=== PATIENT | male | born 1970 | race Caucasian/White ===

== ENCOUNTER 2019-06-05 19:26 | Inpatient (IN) ==
[2019-06-05] MEDS: cefTRIAXone 1,000 MG in Water for inj. (sterile) 10 ML IVP SCH (19:00)
[2019-06-05] MEDS: 0.9 % Sodium Chloride 1,000 ML IVC SCH (19:00)
[~2019-06-05 19:26] MED LIST: 0.9 % Sodium Chloride 1,000 ML ONE; 0.9 % Sodium Chloride Mini Bag 100 ML ONE; CefTRIAXone 1,000 MG VIAL ONE
[2019-06-05] MEDS: Insulin LISPRO 300 UNITS/3 ML VIAL SQ SCH (22:27)
[2019-06-05] MEDS: *HR* Heparin 5,000 UNIT/ML VIAL SQ SCH (22:30)
[2019-06-05 23:00] LABS: BUN/Creatinine Ratio 8 (6-26); Blood Urea Nitrogen 77 mg/dL (6-20); Calcium 8.7 mg/dL (8.6-10.3); Carbon Dioxide 16 mEq/L (23-29); Chloride 101 mEq/L (98-107); Glucose 145 mg/dL (70-105); Osmolality,Calculated 304 (280-300); Potassium 5.8 mEq/L (3.5-5.1); Sodium 134 mEq/L (136-145); eGFR For African Americans 7 (> 60); eGFR For Non-African Americans 6 (> 60)
[2019-06-06 00:52] LABS: Bilirubin,Urine Negative (Negative); Blood,Urine Large (Negative); Clarity,Urine Turbid (Clear); Color,Urine Yellow (Yellow); Glucose,Urine (UA) Normal (Normal); Ketones,Urine Negative (Negative); Leukocyte Esterase,Urine Large (Negative); Nitrite,Urine Negative (Negative); Protein,Urine 100 mg/dL (Neg-Trace); Specific Gravity,Urine 1.011 (1.010-1.025); Urobilinogen,Urine Normal (Normal)
[2019-06-06 00:54] LABS: Hyaline Casts,Urine None Seen per lpf (None-Few); Squamous Epithelial Cell,Urine Many per lpf (None-Few); WBC,Urine 50-100 per hpf (0-3)
[2019-06-06 01:02] LABS: Sodium, Urine 53.5 mEq/L
[2019-06-06 01:07] LABS: Bacteria,Urine Many per hpf (None-Few); RBC,Urine 50-100 per hpf (0-3)
[2019-06-06 02:58] LABS: Creatine Kinase 252 Units/L (30-223); Troponin I < 0.03 ng/mL (< 0.04)
[2019-06-06 06:42] LABS: Basophils # 0.1 K/mcL (0.0-0.2); Basophils % 0.5 %; Eosinophils # 0.2 K/mcL (0.0-0.6); Hemoglobin 12.5 g/dL (12.9-16.9); Immature Granulocytes % 0.9 % (0-4); Lymphocytes # 1.1 K/mcL (0.6-4.6); Lymphocytes % 9.5 %; Mean Corpuscular HGB Conc 34.7 g/dL (31.6-35.5); Mean Corpuscular Hemoglobin 30.5 pg (28.0-33.3); Mean Corpuscular Volume 87.8 fL (83.0-100.0); Mean Platelet Volume 9.1 fL (9.4-12.4); Monocytes # 0.6 K/mcL (0.0-1.3); Monocytes % 5.8 %; Platelet Count 264 K/mcL (140-400); Red Cell Distribution Width 13.6 % (11.5-14.5); Segmented Neutrophils % 81.3 %; White Blood Count 11.1 K/mcL (4.3-11.1)
[2019-06-06] MEDS: 0.9 % Sodium Chloride 1,000 ML IVC SCH ×3 (06:57→20:03)
[2019-06-06 07:03] LABS: Albumin 3.7 g/dL (3.5-5.7); Albumin/Globulin Ratio 1.6 (1.1-2.2); Bilirubin,Total 0.4 mg/dL (0.3-1.0); Calcium 8.3 mg/dL (8.6-10.3); Globulin 2.3 g/dL (2.4-3.5); Magnesium 2.8 mg/dL (1.6-2.6); Phosphorous 8.8 mg/dL (2.7-4.5)
[2019-06-06] MEDS ORDERED: Regadenoson 0.4 MG/5 ML SYRINGE IVP ONE (07:19)
[2019-06-06] MEDS ORDERED: Perflutren Lipid Microsphere 1.3 ML in 0.9 % Sodium Chloride 8.7 ML IVP ONE (07:30)
[2019-06-06] MEDS: cefTRIAXone 1,000 MG in Water for inj. (sterile) 10 ML IVP SCH (08:38)
[2019-06-06] MEDS: amLODIPine 5 MG TABLET PO SCH (08:39)
[2019-06-06] MEDS: Aspirin 81 MG TAB.CHEW PO SCH (08:39)
[2019-06-06] MEDS: Insulin LISPRO 300 UNITS/3 ML VIAL SQ SCH ×4 (08:40→23:00)
[2019-06-06] MEDS: BuPROPion XL (24 HR) 150 MG TABLET PO SCH (08:40)
[2019-06-06] MEDS: *HR* Heparin 5,000 UNIT/ML VIAL SQ SCH ×2 (12:06→23:00)
[2019-06-06] MEDS ORDERED: Sodium Bicarbonate 50 MEQ/50 ML VIAL IVP ONE (13:08)
[2019-06-06] MEDS ORDERED: Acetaminophen 325 MG TABLET PO PRN (14:51)
[2019-06-06] MEDS ORDERED: traMADol 50 MG TABLET PO PRN (14:51)
[2019-06-06] MEDS: Sodium Bicarbonate 150 MEQ in D5% in Water 1,000 ML IVC SCH ×2 (17:51→19:41)
[2019-06-07] MEDS ORDERED: Isovue-300 50ML VIAL ONE (01:10)
[2019-06-07] MEDS: 0.9 % Sodium Chloride 1,000 ML IVC SCH ×2 (03:47→11:47)
[2019-06-07] MEDS ORDERED: Lidocaine HCL 4 ML Topical Solution (Laryng-O-Jet Kit Sterile Pak) TP ONE (05:31)
[2019-06-07] MEDS ORDERED: *HR* Succinylcholine 200 MG/10 ML VIAL IVP ONE (05:32)
[2019-06-07] MEDS ORDERED: Dexamethasone 4 MG/ML VIAL ONE (05:32)
[2019-06-07] MEDS ORDERED: Lidocaine -MPF 2% 2 ML VIAL ONE (05:32)
[2019-06-07] MEDS ORDERED: Ondansetron 4 MG/2 ML VIAL ONE (05:32)
[2019-06-07] MEDS ORDERED: *HR* Midazolam HCl 2 MG/2 ML VIAL ONE (05:33)
[2019-06-07] MEDS ORDERED: *HR* FentaNYL (PF) 100 MCG/2 ML VIAL ONE (05:33)
[2019-06-07] MEDS ORDERED: *HR* Propofol 200 MG/20 ML VIAL IVP ONE (05:34)
[2019-06-07] MEDS ORDERED: Acetaminophen IV 1,000 MG/100 ML INFUS..BTL ONE (05:49)
[2019-06-07] MEDS ORDERED: Famotidine 20 MG/2 ML VIAL ONE (05:50)
[2019-06-07] MEDS ORDERED: Lidocaine -MPF 4% 5 ML AMPUL ONE ×2 (06:11→06:47)
[2019-06-07] MEDS ORDERED: Dexmedetomidine HCl 400 MCG/100 ML MLS IVC ONE (06:16)
[2019-06-07] MEDS ORDERED: Lidocaine OINT 35.44 GM TUBE TP ONE (06:18)
[2019-06-07] MEDS ORDERED: *HR* PHENYLEPHRINE 1,000 MCG/10 ML SYRINGE IVP ONE (07:09)
[2019-06-07] MEDS ORDERED: traMADol 50 MG TABLET PO PRN (07:38)
[2019-06-07] MEDS ORDERED: Dextrose Gel 15 GM/37.5 ML TUBE PO PRN ×3 (07:38→10:04)
[2019-06-07] MEDS ORDERED: D5% in Water 1,000 ML IVC PRN ×2 (07:38→10:04)
[2019-06-07] MEDS ORDERED: *HR* Dextrose 50 % in Water (Syg) 50 ML SYRINGE IVP PRN ×2 (07:38→10:04)
[2019-06-07] MEDS ORDERED: Acetaminophen 325 MG TABLET PO PRN (07:38)
[2019-06-07] MEDS ORDERED: Insulin LISPRO 300 UNITS/3 ML VIAL SQ SCH (07:45)
[2019-06-07] MEDS ORDERED: cefTRIAXone 1,000 MG in 0.9 % Sodium Chloride Mini Bag 100 ML IVPB SCH (09:00)
[2019-06-07] MEDS ORDERED: AMLODIPINE BESYLATE PO SCH (10:04)
[2019-06-07] MEDS ORDERED: Sodium Bicarbonate 150 MEQ in D5% in Water 1,000 ML IVC SCH (10:04)
[2019-06-07] MEDS ORDERED: BuPROPion XL (24 HR) 150 MG TABLET PO SCH (10:04)
[2019-06-07] MEDS: tiZANidine 4 MG TABLET PO SCH ×3 (11:48→20:50)
[2019-06-07] MEDS: cefTRIAXone 1,000 MG in 0.9 % Sodium Chloride Mini Bag 100 ML IVPB SCH (11:49)
[2019-06-07] MEDS: Insulin LISPRO 300 UNITS/3 ML VIAL SQ SCH ×3 (11:50→20:49)
[2019-06-07] MEDS ORDERED: cefTRIAXone 1,000 MG in Water for inj. (sterile) 10 ML IVP SCH (12:00)
[2019-06-07 13:43] LABS: Protein/Creatinine Ratio,Urine 0.49 mg/mg (0.00-0.20); Sodium, Urine 59.5 mEq/L
[2019-06-07 13:44] LABS: Bilirubin,Urine Negative (Negative); Blood,Urine Large (Negative); Clarity,Urine Cloudy (Clear); Color,Urine Yellow (Yellow); Glucose,Urine (UA) Normal (Normal); Ketones,Urine Negative (Negative); Leukocyte Esterase,Urine Small (Negative); Nitrite,Urine Negative (Negative); Protein,Urine 30 mg/dL (Neg-Trace); Specific Gravity,Urine 1.012 (1.010-1.025); Urobilinogen,Urine Normal (Normal)
[2019-06-07 13:45] LABS: Bacteria,Urine None Seen per hpf (None-Few); Hyaline Casts,Urine None Seen per lpf (None-Few); RBC,Urine TNTC per hpf (0-3); Squamous Epithelial Cell,Urine Many per lpf (None-Few)
[2019-06-07 14:14] LABS: Basophils % 0.2 %; Eosinophils % 0.1 %; Hematocrit 37.7 % (37.5-50.1); Hemoglobin 13.3 g/dL (12.9-16.9); Immature Granulocytes % 0.7 % (0-4); Lymphocytes # 0.4 K/mcL (0.6-4.6); Lymphocytes % 3.2 %; Mean Corpuscular HGB Conc 35.3 g/dL (31.6-35.5); Mean Corpuscular Hemoglobin 30.4 pg (28.0-33.3); Mean Corpuscular Volume 86.3 fL (83.0-100.0); Mean Platelet Volume 8.9 fL (9.4-12.4); Monocytes # 0.2 K/mcL (0.0-1.3); Monocytes % 1.3 %; Neutrophils # 10.7 K/mcL (1.6-8.9); Platelet Count 311 K/mcL (140-400); Red Blood Count 4.37 M/mcL (4.19-5.50); Red Cell Distribution Width 13.7 % (11.5-14.5); Segmented Neutrophils % 94.5 %; White Blood Count 11.3 K/mcL (4.3-11.1)
[2019-06-07 14:39] LABS: Calcium 8.4 mg/dL (8.6-10.3); Magnesium 2.7 mg/dL (1.6-2.6); Phosphorous 6.8 mg/dL (2.7-4.5); Potassium 4.5 mEq/L (3.5-5.1)
[2019-06-07 14:40] LABS: Calcium 8.4 mg/dL (8.6-10.3); Potassium 4.6 mEq/L (3.5-5.1)
[2019-06-07 14:41] LABS: Albumin 3.9 g/dL (3.5-5.7); Calcium 8.3 mg/dL (8.6-10.3); Phosphorous 6.8 mg/dL (2.7-4.5); Potassium 4.5 mEq/L (3.5-5.1)
[2019-06-07 15:01] LABS: Complement C3 166 mg/dL (87-200)
[2019-06-07] MEDS: traMADol 50 MG TABLET PO PRN ×2 (15:45→21:47)
[2019-06-07] MEDS: Sodium Bicarbonate 150 MEQ in D5% in Water 1,000 ML IVC SCH ×2 (15:46→22:01)
[2019-06-07] MEDS: *HR* Heparin 5,000 UNIT/ML VIAL SQ SCH ×2 (19:50→20:50)
[2019-06-07] MEDS: BuPROPion XL (24 HR) 150 MG TABLET PO SCH (19:50)
[2019-06-07] MEDS: amLODIPine 5 MG TABLET PO SCH (19:51)
[2019-06-07] MEDS: Aspirin 81 MG TAB.CHEW PO SCH (19:51)
[2019-06-08 05:31] LABS: ABG Base Excess 3 mEq/L (-2 to 3); ABG HCO3 28 mEq/L (21-27); ABG Oxygen Saturation 95 % (95-98); ABG PCO2 42 mmHg (35-45); ABG PH 7.43 pH Units (7.32-7.45); ABG PO2 72 mmHg (85-104); ABG TCO2 30 mEq/L (20-26)
[2019-06-08] MEDS: traMADol 50 MG TABLET PO PRN ×2 (06:04→18:36)
[2019-06-08 07:00] LABS: Basophils # 0.1 K/mcL (0.0-0.2); Basophils % 0.6 %; Eosinophils # 0.1 K/mcL (0.0-0.6); Eosinophils % 1.1 %; Hematocrit 36.8 % (37.5-50.1); Hemoglobin 12.9 g/dL (12.9-16.9); Immature Granulocytes % 1.2 % (0-4); Lymphocytes # 1.5 K/mcL (0.6-4.6); Lymphocytes % 16.9 %; Mean Corpuscular HGB Conc 35.1 g/dL (31.6-35.5); Mean Corpuscular Hemoglobin 30.2 pg (28.0-33.3); Mean Corpuscular Volume 86.2 fL (83.0-100.0); Mean Platelet Volume 8.8 fL (9.4-12.4); Monocytes # 0.6 K/mcL (0.0-1.3); Monocytes % 6.3 %; Neutrophils # 6.6 K/mcL (1.6-8.9); Platelet Count 304 K/mcL (140-400); Red Blood Count 4.27 M/mcL (4.19-5.50); Red Cell Distribution Width 13.8 % (11.5-14.5); Segmented Neutrophils % 73.9 %; White Blood Count 8.9 K/mcL (4.3-11.1)
[2019-06-08 07:05] LABS: Calcium 8.4 mg/dL (8.6-10.3); Magnesium 2.4 mg/dL (1.6-2.6); Phosphorous 4.8 mg/dL (2.7-4.5); Potassium 3.6 mEq/L (3.5-5.1)
[2019-06-08] MEDS ORDERED: Ringers Solution, Lactated 1,000 ML IVC SCH (07:30)
[2019-06-08] MEDS: tiZANidine 4 MG TABLET PO SCH ×3 (09:44→21:15)
[2019-06-08] MEDS: BuPROPion XL (24 HR) 150 MG TABLET PO SCH (09:45)
[2019-06-08] MEDS: Aspirin 81 MG TAB.CHEW PO SCH (09:45)
[2019-06-08] MEDS: amLODIPine 5 MG TABLET PO SCH (09:45)
[2019-06-08] MEDS: Insulin LISPRO 300 UNITS/3 ML VIAL SQ SCH ×4 (09:46→21:13)
[2019-06-08] MEDS: *HR* Heparin 5,000 UNIT/ML VIAL SQ SCH ×2 (09:46→21:18)
[2019-06-08] MEDS: cefTRIAXone 1,000 MG in 0.9 % Sodium Chloride Mini Bag 100 ML IVPB SCH (11:09)
[2019-06-08] MEDS: Sodium Bicarbonate 150 MEQ in D5% in Water 1,000 ML IVC SCH (11:10)
[2019-06-08] MEDS: 0.9 % Sodium Chloride 1,000 ML IVC SCH ×2 (12:31→23:47)
[2019-06-09] MEDS: traMADol 50 MG TABLET PO PRN ×3 (01:23→17:46)
[2019-06-09] MEDS: Acetaminophen 325 MG TABLET PO PRN ×3 (01:29→20:26)
[2019-06-09 02:27] LABS: Basophils # 0.1 K/mcL (0.0-0.2); Basophils % 0.9 %; Eosinophils # 0.3 K/mcL (0.0-0.6); Eosinophils % 3.2 %; Immature Granulocytes % 1.4 % (0-4); Lymphocytes # 2.1 K/mcL (0.6-4.6); Lymphocytes % 24.3 %; Mean Corpuscular HGB Conc 33.2 g/dL (31.6-35.5); Mean Corpuscular Hemoglobin 30.5 pg (28.0-33.3); Mean Corpuscular Volume 91.6 fL (83.0-100.0); Mean Platelet Volume 8.8 fL (9.4-12.4); Monocytes # 0.6 K/mcL (0.0-1.3); Monocytes % 7.1 %; Neutrophils # 5.5 K/mcL (1.6-8.9); Platelet Count 280 K/mcL (140-400); Red Blood Count 3.71 M/mcL (4.19-5.50); Red Cell Distribution Width 13.7 % (11.5-14.5); Segmented Neutrophils % 63.1 %; White Blood Count 8.7 K/mcL (4.3-11.1)
[2019-06-09 02:36] LABS: Hemoglobin 11.3 g/dL (12.9-16.9)
[2019-06-09 02:40] LABS: Calcium 8.6 mg/dL (8.6-10.3); Phosphorous 4.2 mg/dL (2.7-4.5); Potassium 3.3 mEq/L (3.5-5.1)
[2019-06-09] MEDS ORDERED: Potassium Chloride Elixir 20 MEQ/15 ML UDC PO ONE (07:13)
[2019-06-09] MEDS: tiZANidine 4 MG TABLET PO SCH ×3 (07:47→20:27)
[2019-06-09] MEDS: BuPROPion XL (24 HR) 150 MG TABLET PO SCH (07:48)
[2019-06-09] MEDS: amLODIPine 5 MG TABLET PO SCH (07:48)
[2019-06-09] MEDS: cefTRIAXone 1,000 MG in 0.9 % Sodium Chloride Mini Bag 100 ML IVPB SCH (07:50)
[2019-06-09] MEDS: Insulin LISPRO 300 UNITS/3 ML VIAL SQ SCH ×4 (07:54→20:26)
[2019-06-09] MEDS: *HR* Heparin 5,000 UNIT/ML VIAL SQ SCH ×2 (08:12→20:27)
[2019-06-09] MEDS: Aspirin 81 MG TAB.CHEW PO SCH (08:27)
[2019-06-09 13:28] LABS: Serine Protease-3 Antibody 0 AU/mL (0-19)
[2019-06-09] MEDS ORDERED: 0.9 % Sodium Chloride 1,000 ML ONE (15:22)
[2019-06-09] MEDS: 0.9 % Sodium Chloride 1,000 ML IVC SCH (15:33)
[2019-06-10] MEDS: traMADol 50 MG TABLET PO PRN ×2 (00:36→06:24)
[2019-06-10] MEDS: 0.9 % Sodium Chloride 1,000 ML IVC SCH (00:38)
[2019-06-10] MEDS: Acetaminophen 325 MG TABLET PO PRN (05:09)
[2019-06-10 05:42] LABS: Calcium 9.5 mg/dL (8.6-10.3); Potassium 3.5 mEq/L (3.5-5.1)
[2019-06-10] MEDS: Insulin LISPRO 300 UNITS/3 ML VIAL SQ SCH ×2 (08:12→12:40)
[2019-06-10] MEDS ORDERED: cloNIDine HCl 0.1 MG TABLET PO SCH (09:00)
[2019-06-10] MEDS: Aspirin 81 MG TAB.CHEW PO SCH (09:41)
[2019-06-10] MEDS: amLODIPine 5 MG TABLET PO SCH (09:42)
[2019-06-10] MEDS: cefTRIAXone 1,000 MG in 0.9 % Sodium Chloride Mini Bag 100 ML IVPB SCH (09:42)
[2019-06-10] MEDS: tiZANidine 4 MG TABLET PO SCH (09:42)
[2019-06-10] MEDS: BuPROPion XL (24 HR) 150 MG TABLET PO SCH (09:42)
[2019-06-10] MEDS: *HR* Heparin 5,000 UNIT/ML VIAL SQ SCH (09:44)
[2019-06-10 09:57] LABS: ANA IgG by ELISA NONE DETECTED (None Detected)
[2019-06-10 11:15] VITALS: BP 121/85
[2019-06-10 12:15] LABS: Calculi Mass 176 mg
[2019-06-11 12:41] LABS: Alpha 2 Globulin (PEP) 0.94 g/dL (0.48-1.05); Beta Globulin (PEP) 0.68 g/dL (0.48-1.10)
[2019-06-11 12:50] LABS: IFE Reflexed IFE Done; Immunoglobulin A 63 mg/dL (68-408); Immunoglobulin G 556 mg/dL (768-1632); Immunoglobulin M 108 mg/dL (35-263)
== END 2019-06-10 13:57 | disposition home or self-care (01) | DRG 660 ==
LOC: 2ANU → SUATTDRO 06-06 09:46
PROVIDERS: ADMIT Student in an Organized Health Care Education/Training Program; ATTEND Internal Medicine

== ENCOUNTER 2019-09-11 23:39 | Observation (INO) ==
[2019-09-12 01:47] LABS: Basophils # 0.1 K/mcL (0.0-0.2); Basophils % 0.8 %; Eosinophils # 0.5 K/mcL (0.0-0.6); Eosinophils % 4.2 %; Hematocrit 42.8 % (37.5-50.1); Hemoglobin 14.3 g/dL (12.9-16.9); Immature Granulocytes % 0.6 % (0-4); Lymphocytes % 26.6 %; Mean Corpuscular HGB Conc 33.4 g/dL (31.6-35.5); Mean Corpuscular Hemoglobin 29.8 pg (28.0-33.3); Mean Corpuscular Volume 89.2 fL (83.0-100.0); Monocytes # 0.6 K/mcL (0.0-1.3); Monocytes % 5.4 %; Neutrophils # 7.1 K/mcL (1.6-8.9); Platelet Count 375 K/mcL (140-400); Red Cell Distribution Width 13.4 % (11.5-14.5); Segmented Neutrophils % 62.4 %; White Blood Count 11.4 K/mcL (4.3-11.1)
[2019-09-12 01:59] LABS: BUN/Creatinine Ratio 15 (6-26); Blood Urea Nitrogen 20 mg/dL (6-20); Calcium 10.2 mg/dL (8.6-10.3); Carbon Dioxide 20 mEq/L (23-29); Chloride 103 mEq/L (98-107); Glucose 239 mg/dL (70-105); Osmolality,Calculated 290 (280-300); Sodium 135 mEq/L (136-145); eGFR For African Americans > 60 (> 60); eGFR For Non-African Americans 58 (> 60)
[2019-09-12 02:01] LABS: Troponin I < 0.03 ng/mL (< 0.04)
[2019-09-12] MEDS ORDERED: Ondansetron ODT 4 MG TAB.RAPDIS SL ONE (02:31)
[2019-09-12 02:42] LABS: Thyroid Stimulating Hormone 149.308 mcIU/mL (0.340-5.600)
[2019-09-12 02:44] LABS: Bilirubin,Urine Negative (Negative); Blood,Urine Large (Negative); Clarity,Urine Turbid (Clear); Glucose,Urine (UA) 250 mg/dL (Normal); Ketones,Urine Negative (Negative); Leukocyte Esterase,Urine Large (Negative); Nitrite,Urine Negative (Negative); PH,Urine 5.5 pH Units (5.0-8.0); Protein,Urine 100 mg/dL (Neg-Trace); Specific Gravity,Urine 1.023 (1.010-1.025); Urobilinogen,Urine Normal (Normal)
[2019-09-12 02:46] LABS: Hyaline Casts,Urine None Seen per lpf (None-Few); Squamous Epithelial Cell,Urine Few per lpf (None-Few); WBC,Urine TNTC per hpf (0-3)
[2019-09-12 02:50] LABS: Color,Urine Amber (Yellow)
[2019-09-12 03:05] LABS: RBC,Urine TNTC per hpf (0-3)
[2019-09-12 03:06] LABS: Bacteria,Urine Moderate per hpf (None-Few)
[2019-09-12 05:07] LABS: Amphetamine Screen,Urine Positive ng/mL (Cutoff=1000); Barbiturate Screen,Urine Negative ng/mL (Cutoff=200); Benzodiazepines Screen,Urine Negative ng/mL (Cutoff=200); Cannabinoid Screen,Urine Negative ng/mL (Cutoff = 50); Cocaine Screen,Urine Negative ng/mL (Cutoff= 300); Opiate Screen,Urine Negative ng/mL (Cutoff=300); Phencyclidine Screen,Urine Negative ng/mL (Cutoff=25)
[2019-09-12] MEDS ORDERED: Sulfamethoxazole/Trimeth DS 1 EACH TABLET PO ONE (06:08)
[2019-09-12] MEDS ORDERED: *HR* OxyCODONE/APAP 5/325 TABLET PO ONE (08:59)
[2019-09-12] MEDS ORDERED: Mag Hydrox/Al Hydrox/Simeth 30 ML UDC PO PRN (16:30)
[2019-09-12] MEDS ORDERED: hydrOXYzine pamoate 25 MG CAPSULE PO PRN (16:30)
[2019-09-12] MEDS ORDERED: *HR* LORazepam 1 MG TABLET PO PRN (16:30)
[2019-09-12] MEDS ORDERED: QUEtiapine Fumarate 25 MG TABLET PO PRN (16:30)
[2019-09-12] MEDS ORDERED: Haloperidol Lactate 5 MG/ML VIAL IM PRN (16:30)
[2019-09-12] MEDS ORDERED: MOM Conc 10 ML UD.LIQ PO PRN (16:30)
[2019-09-12] MEDS ORDERED: traZODone 50 MG TABLET PO PRN (16:30)
[2019-09-12] MEDS ORDERED: *HR* LORazepam 2 MG/ML VIAL IM PRN (16:30)
[2019-09-12] MEDS ORDERED: Ibuprofen 800 MG TABLET PO PRN (16:32)
[2019-09-12] MEDS ORDERED: *HR* OxyCODONE/APAP 5/325 TABLET PO PRN (16:36)
[2019-09-12] MEDS ORDERED: amLODIPine 5 MG TABLET PO ONE (17:28)
[2019-09-12] MEDS ORDERED: Furosemide 40 MG TABLET PO ONE (17:30)
[2019-09-12] MEDS ORDERED: tiZANidine 4 MG TABLET PO PRN (20:00)
[2019-09-13 09:00] VITALS: BP 133/94
[2019-09-13] MEDS ORDERED: Furosemide 40 MG TABLET PO SCH (09:00)
[2019-09-13] MEDS ORDERED: amLODIPine 5 MG TABLET PO SCH (09:00)
[2019-09-13] MEDS ORDERED: BuPROPion XL (24 HR) 150 MG TABLET PO SCH (09:00)
[2019-09-14] MEDS ORDERED: BuPROPion XL (24 HR) 150 MG TABLET PO SCH (09:00)
== END 2019-09-13 12:42 | disposition home or self-care (01) ==
LOC: EMEROOARM 23:39 → 1ANU 09-12 15:46 → INTOOBSV 09-12 15:46 → 1ANU 09-12 16:17
PROVIDERS: ADMIT Psychiatry & Neurology Psychiatry; ATTEND Psychiatry & Neurology Psychiatry